=== PATIENT | female | born 1950 | race Caucasian/White ===

== ENCOUNTER 2017-05-24 10:11 | Emergency (ER) | payer OTHER ==
[~2017-05-24] VITALS: Ht 162.6 cm; Wt 68.2 kg
[2017-05-24 11:32] LABS: ADD MIUA? NO; BILIRUBIN NEGATIVE; BLOOD NEGATIVE; COLOR STRAW ((YELLOW)); GLUCOSE (STRIP) NEGATIVE; KETONES NEGATIVE; LEUKOCYTES NEGATIVE; NITRITE NEGATIVE; PROTEIN (STRIP) NEGATIVE; SPECIFIC GRAVITY 1.006 (1.000-1.030); UCUL ADDED? NO; UROBILINOGEN 0.2 MG/DL (0.2-1.0)
[2017-05-24 11:33] LABS: HEMATOCRIT 38.4 % (36.0-46.0); MCH 30.2 PG (29.0-34.0); MCHC 33.1 G/DL (30.0-36.0); MCV 91.2 FL (83-99); MEAN PLAT.VOLUME 10.2 uM^3 (9.5-12.4); PLATELET COUNT 190 K/uL (156-360); RBC DIS.WIDTH-CV 13.6 % (11.8-14.6); RBC DIS.WIDTH-SD 45.9 % (39-53); RED BLOOD COUNT 4.21 M/uL (3.80-5.20); WHITE BLOOD COUNT 7.1 K/uL (4.1-10.2)
[2017-05-24 11:41] LABS: CHLORIDE 110 mEq/L (99-109); POTASSIUM 4.1 mEq/L (3.7-5.4); SODIUM 143 mEq/L (136-147)
[2017-05-24 11:44] LABS: GLUCOSE 96 mg/dL (70-99)
[2017-05-24 11:45] LABS: ANION GAP 9 MEQ/L (2-14)
[2017-05-24 11:46] LABS: TOTAL BILIRUBIN 0.6 mg/dL (0.0-1.0)
[2017-05-24 11:47] LABS: ALKALINE PHOSPHATASE 65 IU/L (3-129); GFR ESTIMATE (CALCULATED) 59 mL/min/
[2017-05-24 11:49] LABS: UREA NITROGEN (BUN) 20 mg/dL (9-23)
[2017-05-24 17:56] VITALS: BP 125/63
== END 2017-05-24 18:07 | disposition short-term general hospital (02) ==
LOC: EME 10:11
PROVIDERS: Nurse Practitioner Family
DX: N83.9 Noninflammatory disorder of ovary, fallopian tube and broad ligament, unspecified (principal); R10.31 Right lower quadrant pain; K59.09 Other constipation; E78.5 Hyperlipidemia, unspecified
CPT/HCPCS: 74000; 74177; 80053; 81003; 85027; 99281; 99285; J1885; J2270; J2405; J3010; J7030

== ENCOUNTER → 2017-12-01 | Outpatient (CLI) | payer OTHER ==
[~2017-12-01] MED LIST: ADULT ASPIRIN R81 MG PO; ATIVAN1 MG PO; BENADRYL50 MG PO; CLEARLAX510 GM PO; COMPAZINE10 MG PO; DAILY VITE1 EAC1 PO; DECADRON4 MG PO; ESCITALOPRAM OX10 MG PO; IBUPROFEN800 MG PO; IMITREX100 MG PO; MELATONIN 3 MG1 EAC1 PO; MYCOSTATIN 100,60 ML PO; ROXICODONE5 MG PO; TOPAMAX50 MG PO; TRAZODONE HCL50 MG PO; ZANTAC150 MG PO
== END | disposition home or self-care (01) ==
LOC: OPR 07:31 → EDSTATUS 08:00 → OPR 08:00
DX: J84.10 Pulmonary fibrosis, unspecified (principal); Z85.43 Personal history of malignant neoplasm of ovary; E78.5 Hyperlipidemia, unspecified; Z80.3 Family history of malignant neoplasm of breast; Z80.0 Family history of malignant neoplasm of digestive organs; Z79.82 Long term (current) use of aspirin
CPT/HCPCS: 71045; 77012; 88305; J2250; J2310; J3010